=== PATIENT | male | born 1950 | race Caucasian/White ===

== ENCOUNTER 2019-04-19 11:05 | Emergency (ER) | payer MEDICARE, OTHER ==
[~2019-04-19] VITALS: Ht 170.2 cm; Wt 74.5 kg
[~2019-04-19 11:05] MED LIST: AMOX1TAB10 PO; AZIT250T13 PO; LORA10TA3 PO; METF500T24 PO; RANI150T5 PO; TRAM50TA PO; ZOLP10TA5 PO
[2019-04-19 11:42] VITALS: BP 101/51; PULSE 91; RESP 18; Ht 170.2 cm; Wt 74.5 kg
== END 2019-04-19 14:18 | disposition home or self-care (01) ==
LOC: E/R 11:05
DX: J18.9 Pneumonia, unspecified organism (principal)
CPT/HCPCS: 71045; 72040

== ENCOUNTER 2019-05-05 11:50 | Inpatient (IN) | payer MEDICARE, OTHER ==
[~2019-05-05] VITALS: Ht 172.7 cm; Wt 72.3 kg
[~2019-05-05 11:50] MED LIST changes: +FER325 PO; +PANT40TA4 PO; +SULF-182 PO; +SULF1TAB31 PO
[2019-05-05 12:07] VITALS: Ht 172.7 cm; Wt 72.3 kg
[2019-05-05] MEDS ORDERED: SODIUM CHLORIDE 0.9% 1L BAG IV* STA (12:16)
[2019-05-05] MEDS ORDERED: VANCOMYCIN 1 GM (PMX) 250 ML IVPB STA (12:16)
[2019-05-05] MEDS ORDERED: CEFEPIME 2GM/50 ML (PMX) 50 ML IVPB STA (12:16)
[2019-05-05] MEDS ORDERED: ONDANSETRON 4 MG INJ IV PRN (15:00)
[2019-05-05] MEDS ORDERED: ACETAMINOPHEN 325 MG TAB PO PRN (15:00)
[2019-05-05 16:02] VITALS: BP 118/63; PULSE 82; RESP 19
[2019-05-05] MEDS ORDERED: ZOLPIDEM 5 MG TAB PO PRN (19:00)
[2019-05-05] MEDS: LEVOFLOXACIN 750MG/D5W (PMX) 150 ML IVPB SCH (19:11)
[2019-05-05 19:14] VITALS: BP 106/61; PULSE 92; RESP 18
[2019-05-05] MEDS: POTASSIUM CHLORIDE 10 MEQ in DEXTROSE 5%-0.9% NACL 1,000 ML IV SCH (21:12)
[2019-05-06 00:21] VITALS: BP 117/69; PULSE 88; RESP 18
[2019-05-06 04:57] VITALS: BP 120/71; PULSE 89; RESP 18
[2019-05-06] MEDS: PANTOPRAZOLE 40 MG INJ IV SCH (06:00)
[2019-05-06 07:58] VITALS: BP 98/54; PULSE 82; RESP 18
[2019-05-06] MEDS: HYDROCODONE/APAP (5/325) TAB PO PRN (08:21)
[2019-05-06 11:00] VITALS: BP 101/60; PULSE 82; RESP 18
[2019-05-06] MEDS ORDERED: BARIUM SULF 2% 450 ML BTL (BERRY SMOOTHIE) PO ONE (12:30)
[2019-05-06] MEDS ORDERED: FLUCONAZOLE 200 MG TAB PO ONE (12:30)
[2019-05-06] MEDS: POTASSIUM CHLORIDE 10 MEQ in DEXTROSE 5%-0.9% NACL 1,000 ML IV SCH (12:38)
[2019-05-06 15:16] VITALS: BP 142/70; PULSE 78; RESP 18
[2019-05-06] MEDS: LEVOFLOXACIN 750MG/D5W (PMX) 150 ML IVPB SCH (18:37)
[2019-05-06 19:56] VITALS: BP 131/66; PULSE 79; RESP 19
[2019-05-07] VITALS: BP_SYST 108; BP_SYST 112; BP_DIAS 60; BP_DIAS 62; PULSE 83; PULSE 87; RESP 20
[2019-05-07] MEDS: PANTOPRAZOLE 40 MG INJ IV SCH (05:23)
[2019-05-07] MEDS: POTASSIUM CHLORIDE 10 MEQ in DEXTROSE 5%-0.9% NACL 1,000 ML IV SCH (05:23)
[2019-05-07 07:10] VITALS: BP 116/59; PULSE 81; RESP 18
[2019-05-07] MEDS: FLUCONAZOLE 200 MG TAB PO SCH (08:05)
[2019-05-07 12:00] VITALS: BP 116/59; PULSE 84; RESP 22
[2019-05-07 15:25] VITALS: BP 118/61; PULSE 78; RESP 22
[2019-05-07] MEDS: LEVOFLOXACIN 750MG/D5W (PMX) 150 ML IVPB SCH (18:06)
[2019-05-07 20:35] VITALS: BP 125/61; PULSE 83; RESP 16
[2019-05-07] MEDS: LACTULOSE 30ML CUP PO SCH (21:26)
[2019-05-08 00:23] VITALS: BP 124/61; PULSE 84; RESP 16
[2019-05-08] MEDS: LACTULOSE 30ML CUP PO SCH ×7 (00:41→21:34)
[2019-05-08] MEDS: POTASSIUM CHLORIDE 10 MEQ in DEXTROSE 5%-0.9% NACL 1,000 ML IV SCH ×2 (01:28→02:30)
[2019-05-08 04:28] VITALS: BP 122/60; PULSE 80; RESP 18
[2019-05-08] MEDS: HYDROCODONE/APAP (5/325) TAB PO PRN (05:34)
[2019-05-08] MEDS: PANTOPRAZOLE 40 MG INJ IV SCH (05:34)
[2019-05-08] MEDS: FLUCONAZOLE 200 MG TAB PO SCH (08:07)
[2019-05-08 08:30] VITALS: BP 96/60; PULSE 64; RESP 20
[2019-05-08 12:09] VITALS: BP 129/70; PULSE 74; RESP 22
[2019-05-08 16:51] VITALS: BP 131/78; PULSE 77; RESP 18
[2019-05-08] MEDS: LEVOFLOXACIN 750MG/D5W (PMX) 150 ML IVPB SCH (19:49)
[2019-05-08 20:55] VITALS: BP 127/65; PULSE 80; RESP 18
[2019-05-09] VITALS (14 sets, daily range): BP systolic 97–128; BP diastolic 50–79; PULSE 76–88; RESP 17–26
[2019-05-09] MEDS: PANTOPRAZOLE 40 MG INJ IV SCH (06:04)
[2019-05-09] MEDS: FLUCONAZOLE 200 MG TAB PO SCH (09:00)
[2019-05-09] MEDS ORDERED: MIDAZOLAM 1 MG/ML 2 ML INJ ONE ×2 (18:34)
[2019-05-09] MEDS ORDERED: FENTAnyl 50 MCG/ML VIAL ONE (18:34)
[2019-05-09] MEDS: LEVOFLOXACIN 750MG/D5W (PMX) 150 ML IVPB SCH (19:05)
[2019-05-10] VITALS (21 sets, daily range): BP systolic 98–123; BP diastolic 56–73; PULSE 71–100; RESP 17–33
[2019-05-10] MEDS: PANTOPRAZOLE (EC) 40 MG TAB PO SCH (05:25)
[2019-05-10] MEDS: FLUCONAZOLE 200 MG TAB PO SCH ×2 (09:00→14:06)
[2019-05-10] MEDS ORDERED: LIDOCAINE 100 MG SYRINGE ONE (09:14)
[2019-05-10] MEDS ORDERED: PROPOFOL 20 ML ONE (09:14)
[2019-05-10] MEDS ORDERED: FENTAnyl 50 MCG/ML VIAL ONE (09:48)
[2019-05-10] MEDS ORDERED: LIDOCAINE 2% (MDV) 20 ML INJ ONE (09:53)
[2019-05-10] MEDS ORDERED: ALBUTEROL 0.083% (NEB) 2.5 MG/3 ML AMP HHN PRN (10:00)
[2019-05-10] MEDS ORDERED: LABETALOL HCL 20MG INJ IV PRN (10:00)
[2019-05-10] MEDS ORDERED: OXYCODONE/ACETAMINOPHEN (5/325) TAB PO PRN ×2 (10:00)
[2019-05-10] MEDS ORDERED: DIPHENHYDRAMINE 50 MG INJ IV PRN (10:00)
[2019-05-10] MEDS ORDERED: MEPERIDINE 25 MG INJ IV PRN (10:00)
[2019-05-10] MEDS ORDERED: EPHEDrine 25 MG/5 ML SYG IV PRN (10:00)
[2019-05-10] MEDS ORDERED: FENTAnyl 50 MCG/ML VIAL IV PRN ×3 (10:00)
[2019-05-10] MEDS ORDERED: hydrALAzine 20 MG INJ IV PRN (10:00)
[2019-05-10] MEDS ORDERED: HYDROmorphONE 1 MG/5 ML IV SYRINGE IV PRN ×3 (10:00)
[2019-05-10] MEDS ORDERED: IPRATROPIUM (NEB) 0.5 MG/2.5 ML AMP HHN PRN (10:00)
[2019-05-10] MEDS ORDERED: ONDANSETRON 4 MG INJ IV PRN (10:00)
[2019-05-10] MEDS ORDERED: ONDANSETRON 4 MG INJ ONE (10:15)
[2019-05-10] MEDS ORDERED: ROCURONIUM 50 MG INJ ONE (10:15)
[2019-05-10] MEDS ORDERED: SUCCINYLCHOLINE CHLORIDE 100 MG/5 ML SYG IV ONE (10:15)
[2019-05-10] MEDS: LEVOFLOXACIN 750MG/D5W (PMX) 150 ML IVPB SCH (18:32)
[2019-05-11 00:56] VITALS: BP 121/64; PULSE 92; RESP 18
[2019-05-11 04:23] VITALS: BP 111/62; PULSE 95; RESP 18
[2019-05-11] MEDS: PANTOPRAZOLE (EC) 40 MG TAB PO SCH (06:24)
[2019-05-11 07:25] VITALS: BP 107/59; PULSE 87; RESP 20
[2019-05-11] MEDS: TRIMETHOPRIM/SULFAMETHOX (DS) TAB PO SCH ×3 (09:04→20:38)
[2019-05-11] MEDS: FLUCONAZOLE 200 MG TAB PO SCH (09:04)
[2019-05-11 11:17] VITALS: BP 106/61; PULSE 79; RESP 20
[2019-05-11 15:37] VITALS: BP 118/61; PULSE 75; RESP 20
[2019-05-11] MEDS: LEVOFLOXACIN 750MG/D5W (PMX) 150 ML IVPB SCH (18:35)
[2019-05-11 20:00] VITALS: BP 113/62; PULSE 82; RESP 18
[2019-05-12] VITALS: BP 102/57; PULSE 75; RESP 17
[2019-05-12 04:00] VITALS: BP 108/59; PULSE 78; RESP 18
[2019-05-12] MEDS: PANTOPRAZOLE (EC) 40 MG TAB PO SCH (05:52)
[2019-05-12 07:49] VITALS: BP 101/60; PULSE 76; RESP 20
[2019-05-12] MEDS: TRIMETHOPRIM/SULFAMETHOX (DS) TAB PO SCH ×3 (08:19→20:57)
[2019-05-12] MEDS: FERROUS SULFATE (EC) 325 MG TAB PO SCH ×2 (08:19→20:57)
[2019-05-12] MEDS: FLUCONAZOLE 200 MG TAB PO SCH (08:19)
[2019-05-12 11:30] VITALS: BP 100/55; PULSE 82; RESP 20
[2019-05-12 15:08] VITALS: BP 114/62; PULSE 78; RESP 20
[2019-05-12 20:00] VITALS: BP 116/61; PULSE 78; RESP 18
[2019-05-13] MEDS: PANTOPRAZOLE (EC) 40 MG TAB PO SCH (06:14)
[2019-05-13] MEDS ORDERED: BISACODYL (EC) 5 MG TAB PO PRN (07:30)
[2019-05-13 07:50] VITALS: BP 106/64; PULSE 85; RESP 18
[2019-05-13] MEDS: FERROUS SULFATE (EC) 325 MG TAB PO SCH (08:29)
[2019-05-13] MEDS: TRIMETHOPRIM/SULFAMETHOX (DS) TAB PO SCH ×2 (08:29→12:28)
[2019-05-13 11:38] VITALS: BP 86/54; PULSE 91; RESP 17
[2019-05-13 15:55] VITALS: BP 98/59; PULSE 75; RESP 18
== END 2019-05-13 18:15 | disposition home or self-care (01) | DRG 975 ==
LOC: E/R 11:50 → TEL 14:40
PROVIDERS: ADMIT Internal Medicine; ATTEND Internal Medicine
PROC: 0DJD8ZZ Inspection of Lower Intestinal Tract, Via Natural or Artificial Opening Endoscopic (ICD-10-PCS; 2019-05-09)
PROC: 0DB78ZX Excision of Stomach, Pylorus, Via Natural or Artificial Opening Endoscopic, Diagnostic (ICD-10-PCS; 2019-05-09)
PROC: 0BB88ZX Excision of Left Upper Lobe Bronchus, Via Natural or Artificial Opening Endoscopic, Diagnostic (ICD-10-PCS; 2019-05-10)
PROC: 0B9G8ZX Drainage of Left Upper Lung Lobe, Via Natural or Artificial Opening Endoscopic, Diagnostic (ICD-10-PCS; principal; 2019-05-10 09:00)
PROC: 4A033R1 Measurement of Arterial Saturation, Peripheral, Percutaneous Approach (ICD-10-PCS; 2019-05-11)
DX: B20 Human immunodeficiency virus [HIV] disease (principal); B59 Pneumocystosis; N39.0 Urinary tract infection, site not specified; J95.830 Postprocedural hemorrhage of a respiratory system organ or structure following a respiratory system procedure; I95.9 Hypotension, unspecified; I10 Essential (primary) hypertension; M19.90 Unspecified osteoarthritis, unspecified site; E78.5 Hyperlipidemia, unspecified; D64.9 Anemia, unspecified; Z68.24 Body mass index [BMI] 24.0-24.9, adult; E86.0 Dehydration; R63.4 Abnormal weight loss; R19.4 Change in bowel habit; R13.10 Dysphagia, unspecified; K29.70 Gastritis, unspecified, without bleeding; R19.5 Other fecal abnormalities; K64.8 Other hemorrhoids; K64.4 Residual hemorrhoidal skin tags; K29.30 Chronic superficial gastritis without bleeding; E11.9 Type 2 diabetes mellitus without complications; B95.2 Enterococcus as the cause of diseases classified elsewhere; Y84.8 Other medical procedures as the cause of abnormal reaction of the patient, or of later complication, without mention of misadventure at the time of the procedure; Y92.234 Operating room of hospital as the place of occurrence of the external cause
CPT/HCPCS: 36415; 36600; 70450; 71045; 71250; 74176; 76700; 80048; 80053; 81003; 82105; 82140; 82164; 82270; 82378; 82607; 82746; 82803; 83540; 83605; 83615; 84134; 84145; 84443; 84484; 85025; 85610; 85651; 85730; 86038; 86301; 86360; 86480; 86592; 86635; 86701; 86703; 86704; 86709; 86803; 87015; 87070; 87081; 87086; 87102; 87116; 87281; 87340; 87385; 87536; 87591; 88305; 88312; 93005; 96361; 96365; 96375; C9113; J0692; J1956; J2001; J2250; J2405; J3010; J3370; J3480; J7030; J7042